=== PATIENT | female | born 1965 | race Native Hawaiian/Other Pacific Islander ===

== ENCOUNTER 2017-07-15 15:30 | Emergency (ER) | payer SELFPAY ==
--- NOTE | 2017-07-15 16:13 | ED Physician Documentation ---
PD HPI HEENT - Stated complaint Stated Complaint: FACIAL SWELLING - Chief complaint Chief Complaint: Heent - History obtained from History obtained from: Patient - History of Present Illness Timing - onset: How many days ago (5) Timing - duration: Days (5) Timing - details: Gradual onset, Still present Location: Tooth (left upper gum and tooth pain, with focal swelling of gum and then facial swelling today.) Improves: No: Medication Similar symptoms before: Has not had sx before Recently seen: Not recently seen Review of Systems Constitutional: denies: Fever, Chills Throat: reports: Dental pain / toothache. 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 - Present Medications Home Medications: Ambulatory Orders Medication Instructions Recorded Confirmed Clindamycin HCl [Cleocin HCl] 300 mg PO TID #18 capsule 07/15/17 HYDROcod/ACETAM 5/325 [[place] 5/325] 1 tab PO Q6H PRN #15 tablet 07/15/17 - Allergies Allergies/Adverse Reactions: Allergies Allergy/AdvReac Type Severity Reaction Status Date / Time No Known Drug Allergies Allergy Verified 07/15/17 15:51 - Social History Does the pt smoke?: No Smoking Status: Never smoker Does the pt drink ETOH?: No Does the pt have substance abuse?: No - Immunizations Immunizations are current?: Yes PD ED PE NORMAL - Vitals Vital signs reviewed: Yes - General General: Alert and oriented X 3, No acute distress, Well developed/nourished - HEENT HEENT: No: Dentition benign (left upper tooth with cavity and gum with swelling focally with fluctuance. Facial swelling without abscess nor redness. ) - Neck Neck: Supple, no meningeal sign, Other (anterior adenopathy) Results - Vitals Vitals: Oxygen O2 Source Room air Procedures - Abscess I&D (location) left upper gum Preparation: Other (viscous lido on qtip to spot) Incision: Incised with scalpel, Purulent drainage. No: Irrigated, Packed Other: Pt tolerated well PD MEDICAL DECISION MAKING - ED course Complexity details: considered differential (swelling of face without abscess in soft tissue; swelling of gum with fluctuance and did incision after topical lido (was not deep abscess). ), d/w patient Departure - Departure Disposition: 01 Home, Self Care Clinical Impression: Dental abscess Condition: Stable Record reviewed to determine appropriate education?: Yes Instructions: ED Abscess Dental Prescriptions: Clindamycin HCl [Cleocin HCl] 300 mg PO TID #18 capsule HYDROcod/ACETAM 5/325 [[place] 5/325] 1 tab PO Q6H PRN #15 tablet PRN Reason: Pain Comments: Drink lots of fluids. Rinse the upper gum and mouth with antiseptic a few times a day to help cleanse the tooth area. Use Tylenol or ibuprofen as needed for pains. Add hydrocodone if needed. Clindamycin antibiotic 3 times a day for the next 6 days for the infection. Follow-up with a dentist subsequently for more definitive care of the tooth cavity. At least one of your blood pressure readings in the ER today was elevated above the normal level. If you have diagnosed high blood pressure in the past, please be sure you are taking your BP medications and eating low salt diet. If you do not have know high BP, then being high today does not mean it is a correction issue. It might be reactively high to the situation that has you here. You should follow up with your primary care to have the blood pressure checked again in the next few days/week or so to see if it is persistently high. If so, then you may need medication or changes in diet/lifestyle to treat it. Discharge Date/Time: 07/15/17 17:31
[2017-07-15] MEDS ORDERED: CLINDAMYCIN 150 MG CAPSULE PO STA (16:25)
[2017-07-15] MEDS ORDERED: HYDROcod/ACETAM 5/325 MG TABLET PO STA (16:25)
[2017-07-15] MEDS ORDERED: LIDOCAINE VISCOUS 2% 100 ML BOTTLE MM STA (16:25)
[2017-07-15] MEDS ORDERED: LIDOCAINE VISCOUS 2% 15 ML UDC MM STA (16:27)
[2017-07-15] MEDS ORDERED: CLINDAMYCIN 150 MG CAPSULE PO ONE (16:39)
[2017-07-15] MEDS ORDERED: HYDROcod/ACETAM 5/325 MG TABLET ONE (16:39)
[2017-07-15] MEDS ORDERED: LIDOCAINE VISCOUS 2% 15 ML UDC MM ONE (16:40)
[2017-07-15 17:16] VITALS: BP 171/86
== END 2017-07-15 17:31 | disposition home or self-care (01) ==
LOC: ED 15:30
DX: K04.7 Periapical abscess without sinus (principal); R03.0 Elevated blood-pressure reading, without diagnosis of hypertension
CPT/HCPCS: 41800; 99283; A9270